=== PATIENT | female | born 1950 | race Caucasian/White ===

== ENCOUNTER 2021-10-23 12:17 | Outpatient (CLI) | payer MEDICARE, BC, SELFPAY ==
[2021-10-23 13:42] VITALS: BP 144/82; PULSE 77; RESP 18
[2021-10-23] MEDS: PERFLUTREN LIPID MICROSPHERES 2 ML VIAL IV (14:54)
--- NOTE | 2021-10-23 17:40 | PM.ST ---
Stress Test Note Date Date of test: 10/23/21 Providers Referring provider: Arleen Ramirez Primary care provider: Arleen Ramirez Stress test physician: Manuel Miller Stress Test Note Stress test ordered: Stress Echo Indication for test: chest pain Stress test medicine: Definity Results discussion: Patient is very nice lady presents above test after discussion risks benefits side effects she would like to proceed pretest cardiac stress test medical history form is reviewed. Pre EKG shows a ventricular rate of 70, there is some mild ST wave changes noted throughout the precordium, blood pressure is 142/80. Patient is exercised for a total time of 4 minutes 41 seconds, achieved a metabolic equivalent of 6.6. Maximum blood pressure is 200/94. 102% of the target was reached. During this test there is no acute ST wave changes suggestive ischemia, no dysrhythmias, and no other acute findings. She recovered normally in the recovery period, did not have chest pain just some mild 15 Impression: Negative electrographic portion of stress echo Follow up suggested: Await echo images these will be read by Cardiology patient left this testing facility in excellent condition negative get, back to baseline.
== END 2021-10-23 12:18 | disposition home or self-care (01) ==
LOC: STRESS 12:20
PROVIDERS: PCP Family Medicine; Visit Provider Family Medicine
DX: R07.9 Chest pain, unspecified (principal)
CPT/HCPCS: 93016; 93325; 93351; Q9957

== ENCOUNTER 2021-12-17 10:00 | Outpatient (RCR) | payer OTHER, MEDICARE, BC, SELFPAY | END 2021-12-28 13:32 | disposition home or self-care (01) | PROVIDERS: PCP Family Medicine; Visit Provider Nurse Practitioner Family | DX: M25.512 Pain in left shoulder (principal); Z51.89 Encounter for other specified aftercare | CPT/HCPCS: 97110; 97140; 97162 ==

== ENCOUNTER 2022-09-16 11:18 | Inpatient (IN) | payer MEDICARE, BC, SELFPAY ==
[2022-09-16] VITALS (9 sets, daily range): BP systolic 139–180; BP diastolic 72–93; PULSE 69–82; RESP 16–18; TEMP 35.8–36.6; O2SAT 91–96; BMI 32.6; BMI 34.4
--- NOTE | 2022-09-16 13:23 | CRLHL7_ITS ---
For Patients: As a result of the 21st Century Cures Act, medical imaging exams and procedure reports are released immediately into your electronic medical record. You may view this report before your referring provider. If you have questions, please contact your health care provider. INDICATION: Fall, left rib pain, left upper quadrant and flank pain. History of appendectomy. TECHNIQUE: CT of the chest, abdomen, and pelvis with 93 cc Isovue 370 IV contrast. Coronal and sagittal reconstructions. COMPARISON: None. FINDINGS: Chest: Heart size upper limits of normal. Normal caliber thoracic aorta. Coronary artery and aortic vascular calcifications. The main pulmonary artery is enlarged measuring 3.4 cm. This can be seen with pulmonary hypertension. No large central pulmonary embolism. No pericardial effusion or mediastinal hematoma. Mildly prominent right paratracheal, subcarinal, and bilateral axillary lymph nodes may be reactive. The imaged thyroid gland is normal in appearance. No focal consolidation, pleural effusion, or pneumothorax. Bibasilar atelectasis. Linear atelectasis or scarring left lower lobe. No pulmonary nodules identified. No central endobronchial lesion or bronchial wall thickening. Degenerative changes of the spine. Acute nondisplaced fractures of the right anterior 4th rib and left anterior 4th-6th ribs. Old fractures of the left posterior 5th-8th ribs. Abdomen/pelvis: The liver, gallbladder, spleen, pancreas, and adrenal glands are negative. No biliary dilation. Hepatic and portal veins are patent. Symmetric enhancement of the kidneys. Small right renal cyst. There is a 4.4 cm exophytic cyst arising from the lower pole of the left kidney. No hydronephrosis or ureteral dilation. No obstructing urinary calculi identified. The bladder is normal in appearance. There is a subtle enhancing lesion within the cervical canal measuring 1.4 cm (series 5, image 252). No adnexal mass. No small bowel dilation. Moderate amount of stool in the proximal colon. Status post appendectomy with residual appendiceal stump. No intraperitoneal free air or fluid. Mildly prominent bilateral external iliac and inguinal chain lymph nodes are likely reactive. Aortoiliac vascular calcifications. Small fat containing umbilical and right inguinal hernias. Left convex lumbar curve. Degenerative changes of the spine and pubic symphysis. Hemangioma in the L3 vertebral body. Minimal retrolisthesis of L1 on L2, L2 on L3, and L3 on L4. Mild anterolisthesis of L4 on L5. No acute fracture identified. IMPRESSION: 1. Acute nondisplaced fractures of the right anterior 4th rib and left anterior 4th-6th ribs. 2. Enlargement of the main pulmonary artery which can be seen with pulmonary hypertension. 3. Mildly prominent mediastinal, bilateral axillary, and bilateral pelvic lymph nodes are likely reactive. 4. There appears to be an enhancing lesion within the cervical canal. This could be further evaluated with nonemergent pelvic ultrasound. 5. No other acute findings in the chest, abdomen, or pelvis. Please note that all CT scans at this facility use dose modulation, iterative reconstruction, and/or weight-based dosing when appropriate to reduce radiation dose to as low as reasonably achievable. Dictated by Shani Diaz MD @ 09/16/2022 4:31:02 PM (Electronically Signed)
--- NOTE | 2022-09-16 13:23 | CRLHL7_ITS ---
For Patients: As a result of the Century Cures Act, medical imaging exams and procedure reports are released immediately into your electronic medical record. You may view this report before your referring provider. If you have questions, please contact your health care provider. INDICATION: Fall. Headaches. TECHNIQUE: CT of the head without contrast. Coronal and sagittal reformats are included. COMPARISON: None. FINDINGS: No acute intracranial hemorrhage. No mass effect or midline shift. No hydrocephalus or extra-axial collections. Patchy hypoattenuation throughout the supratentorial white matter, typical for chronic microvascular ischemic changes. No acute osseous abnormalities. Hyperostosis internalis. Mastoid air cells and paranasal sinuses are clear. Normal soft tissues. IMPRESSION: IMPRESSION: 1. No acute intracranial abnormalities. Please note that all CT scans at this facility use dose modulation, iterative reconstruction, and/or weight-based dosing when appropriate to reduce radiation dose to as low as reasonably achievable. Dictated by aGurav Rome MD @ 09/16/2022 3:42:11 PM (Electronically Signed)
--- NOTE | 2022-09-16 13:23 | CRLHL7_ITS ---
For Patients: As a result of the Cures Act, medical imaging exams and procedure reports are released immediately into your electronic medical record. You may view this report before your referring provider. If you have questions, please contact your health care provider. INDICATION: Fall. Neck pain. TECHNIQUE: CT of the cervical spine without contrast. Coronal and sagittal reformats are included. COMPARISON: None. FINDINGS: No acute fracture or traumatic malalignment of the cervical spine. Craniocervical junction alignment is maintained. C5-6 moderate disc height loss with endplate remodeling. C4-5 and C6-7 mild disc height loss. Minimal disc degeneration elsewhere. Multilevel uncovertebral/facet arthrosis with high-grade neural foraminal stenosis and C5-6 on the left, and [id number] elsewhere. Imaged intracranial structures, cervical and paraspinous soft tissues are normal in appearance. The visualized pulmonary apices are clear. IMPRESSION: 1. No acute fracture or traumatic malalignment of the cervical spine. Please note that all CT scans at this facility use dose modulation, iterative reconstruction, and/or weight-based dosing when appropriate to reduce radiation dose to as low as reasonably achievable. Dictated by Gaurav Rome MD @ 09/16/2022 3:49:02 PM (Electronically Signed)
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
[2022-09-16] MEDS: fentaNYL 100 MCG/2 ML inj 25 MCG IVP ×2 (13:42→15:10)
[2022-09-16] MEDS: ONDANSETRON 2 MG/ML inj 4 MG IVP (13:42)
[2022-09-16 13:49] LABS: Basophils Absolute Auto 0.02 K/uL (0.00-0.30); Basophils Percent Auto 0.3 % (0.0-3.0); Eosinophils Absolute Auto 0.19 K/uL (0.00-0.50); Eosinophils Percent Auto 2.6 % (0.0-7.0); Hematocrit 46.2 % (33.0-51.0); Hemoglobin* 14.9 gm/dL (12.0-16.0); Immature Granulocytes Abs Auto 0.01 K/uL (0.00-0.30); Immature Granulocytes Pct Auto 0.1 %; Lymphocytes Percent Auto 13.3 % (20-44); Mean Corpuscular HGB Conc 32 gm/dL (32-36); Mean Corpuscular Hemoglobin 29 pg (26-34); Mean Corpuscular Volume 91 fL (80-100); Monocytes Percent Auto 9.8 % (0.0-11.0); Neutrophils Percent Auto 73.9 % (42.0-72.0); Platelet Count* 142 K/uL (140-440); RDW Coefficient of Variation % 14.2 % (11.5-15.5); Red Blood Count 5.08 m/uL (4.00-5.20); White Blood Count* 7.23 K/uL (4.50-11.00)
[2022-09-16 13:50] LABS: Slide Review Reflex No
--- OUTSIDE RECORDS SUMMARY | 2022-09-16 13:52 | XMS_ITS | Continuity of Care Document ---
Author Name Unknown Address [address] [place] [address] [facility] Address [address] [place] [address] Phone Care Team Providers Care Home Service Demonstrator Name Role Phone MD Deborah Whelan Emergency Provider Pcp-Steve, MD [place] Primary Care Provider Unavailabl e Chief Complaint and Reason for Visit Chief Complaint CHEST PAIN Allergies, Adverse Reactions, Alerts No known allergies Social History Smoking Status Unknown if ever smoked Observation Status Observation Response Date of Response Lives With Family March 16 11:06am Living Situation Private Home March 16 11:06am Additional Data Assigned Sex Female Problems Active Problems Medical Problem Onset Date Status Chronic chest wall pain Active Upper back pain on left side Act omer Dizziness Active Posterior neck pain Active Frequent headaches Active Thrombocytopenia Active Left shoulder pain Active Hypertension Active Medications Medication Status Dose Units Route Directions Qty Days Start Diego e End Date Instructions Acetaminophe n-Codeine Active 1 TAB PO EVERY 6 HOURS 15 3 March 16, 2022 12:00am Procedures Procedure Date Performed Status EKG ED Electrocardiogram March 16, 2022 11:[address] head/brain wo contrast March 16, 2022 11: 23am completed XR chest 2V March 16, 2022 11:23am compl eted XR shoulder LT min 2V March 16, 2022 11:23am completed XR cervical spine 3V March 16, 2022 11:23am completed Relevant Diagnostic Tests and/or Laboratory Data Laboratory Results Test Date/Time Result Interpretation Reference Range Result Comment Performing Site White Blood Count March 16, 2022 11:45am 6.8 x10^3/uL 4.0-11.0 [facility] [id number] [address] [place] [address] Red Blood Count March 16, 2022 11:45am 4.7 x10^6/uL 3.7-5.4 [facility] [id number] [address] [place] [address] Hemoglobin March 16, 2022 11:45am 14.7 g/dl 12.0-16.0 [facility] [id number] [address] [place] [address] Hematocrit March 16, 2022 11:45am 43.5 % 35.0-48.0 [facility] [id number] [address] [place] [address] Mean Corpuscular Volume March 16, 2022 11:45am 92 fL 78-100 [facility] [id number] [address] [place] [address] Mean Corpuscular Hemoglobin March 16, 2022 11:45am 31 pg 27-34 [facility] [id number] [address] [place] [address] Mean Corpuscular Hemoglobin Concent March 16, 2022 11:45am 33.8 g/dl 32.0-36.0 [facility] [id number] [address] [place] [address] Red Cell Distribution Width March 16, 2022 11:45am 14.7 % 11.9-15.7 [facility] [id number] [address] [place] [address] Platelet Count March 16, 2022 11:45am 134 x10^3/uL 150-450 [facility] [id number] [address] [place] [address] Neutrophils (%) (Auto) March 16, 2022 11:45am 81 % [facility] [id number] [address] [place] [address] Lymphocytes (%) (Auto) March 16, 2022 11:45am 11.2 % [facility] [id number] [address] [place] [address] Monocytes (%) (Auto) March 16, 2022 11:45am 6 % [facility] [id number] [address] [place] [address] Eosinophils (%) (Auto) March 16, 2022 11:45am 1.6 % [facility] [id number] [address] [place] [address] Basophils (%) (Auto) March 16, 2022 11:45am 0 % [facility] [id number] [address] [place] [address] Neutrophils # (Auto) March 16, 2022 11:45am 5.5 x10^3/uL 1.5-7.8 [facility] [id number] [address] [place] [address] Lymphocytes # (Auto) March 16, 2022 11:45am 0.8 x10^3/uL 0.9-3.9 [facility] [id number] [address] [place] [address] Monocytes # (Auto) March 16, 2022 11:45am 0.4 x10^3/uL 0.2-1.0 [facility] [id number] [address] [place] [address] Eosinophils # (Auto) March 16, 2022 11:45am 0.1 x10^3/uL 0.1-0.6 [facility] [id number] [address] [place] [address] Basophils # (Auto) March 16, 2022 11:45am 0.0 x10^3/uL 0.0-0.2 [facility] [id number] [address] [place] [address] Nucleated RBC Absolute Count (auto) March 16, 2022 11:45am 0 [facility] [id number] [address] [place] [address] Prothrombin Time March 16, 2022 11:45am 10.7 seconds 9.3-12.1 [facility] [id number] [address] [place] [address] Prothromb Time International Ratio March 16, 2022 11:45am 1.0 0.9-1.2 Reference Interval is for non-anticoagul ated patients.Suglorna sted INR Therapeutic Range for Vitamin K antogonist therapy:LEVELS OF THERAPY INDICATIONS TARGET INR RANGEStandard Dose Venous Thrombosis, 2.0 - 3.0 Atrial Fibrillation, Pulmonary Embolism. High Dose Valvular Heart Disease, 2.5 - 3.5 Mechanical Heart, Intracardiac Thrombosis. [facility] [id number] [address] [facility] [address] D-Dimer, Quantitative March 16, 2022 11:45am 0.67 ug/mLFEU <0.49 The D-Dimer is intended for use in conjunction with clinical pretest probability (PTP) assessment model to exclude pulmonary embolism (PE) and deep venous thrombosis (DVT) in outpatients presenting to the emergency or ambulatory department with suspected PE or DVT.The cut off value is 0.50 ug/mL FEUResults of this test should always be interpreted in conjunction with the patient? s medical history, clinical presentation and other findings. DVT clinical diagnosis should not be based on the result of the D-Dimer alone. [facility] [id number] [address] [facility] [address] Sodium Level March 16, 2022 12:45pm 135 mmol/L 136-145 [facility] [id number] [address] [place] [address] Potassium Level March 16, 2022 12:45pm 4.1 mmol/L 3.5-5.1 [facility] [id number] [address] [place] [address] Chloride Level March 16, 2022 12:45pm 103 mmol/L 98-107 [facility] [id number] [address] [facility] [address] Carbon Dioxide Level March 16, 2022 12:45pm 29.0 mmol/L 21.0-32.0 [facility] [id number] [address] [place] [address] Anion Gap March 16, 2022 12:45pm 3 mmol/L 6-11 [facility] [id number] [address] [facility] [address] Blood Urea Nitrogen March 16, 2022 12:45pm 18 mg/dL 7-18 [facility] [id number] [address] [facility] [address] Creatinine March 16, 2022 12:45pm 0.88 mg/dL 0.60-1.30 [facility] [id number] [address] [facility] [address] Estimated Creatinine Clearance March 16, 2022 12:45pm 60 mL/min This value is calculated by Cockcroft Gault Equation using ideal body weight. This result is dependent on an accurate patient height and weight which is obtained from patients medical record. Cockcroft, D.W. and M.H. Gault. Prediction of creatinine clearance from serum creatinine. Nephron. 1976. 16(1):31-41. [facility] [id number] [address] [place] [address] Estimat Glomerular Filtration Rate March 16, 2022 12:45pm 69 >90 Reported eGFR is based on the CKD-EPI 2020 equation that does not use a race coefficient. Additional information can be found at:03-22-8261_ [email or web address] ([email or web address]) [facility] [id number] [address] [place] [address] BUN/Creatinine Ratio March 16, 2022 12:45pm 20 ratio 6-21 [facility] [id number] [address] [place] [address] Glucose Level March 16, 2022 12:45pm 88 mg/dL 74-106 [facility] [id number] [address] [place] [address] Calcium Level March 16, 2022 12:45pm 9.90 mg/dL 8.50-10.10 [facility] [id number] [address] [place] [address] Total Bilirubin March 16, 2022 12:45pm 0.53 mg/dL 0.00-1.00 [facility] [id number] [address] [place] [address] Aspartate Amino Transf (AST/SGOT) March 16, 2022 12:45pm 23 U/L 15-37 [facility] [id number] [address] [place] [address] Alanine Aminotransferase (ALT/SGPT) March 16, 2022 12:45pm 44 U/L 12-78 [facility] [id number] [address] [place] [address] Troponin I High Sensitivity March 16, 2022 12:45pm 4.6 ng/L 0.0-58.9 High Sensitivity Troponin I less than 59.0 ng/L appears normal but may be associated with minimal myocardial damage (ACS) if accompanied by appropriate clinical and ECG findings. Troponin I equal to or greater than 59.0 ng/L is consistent with myocardial infarction if associated with at least one ischemic finding (new significant AA-plzegbn-A wave changes, new left bundle branch block, pathologic Q wave changes, imaging evidence of new loss of viable myocardium or new regional wall abnormality). [2012 Isabella Definition of Myocardial Infarction] [facility] [id number] [address] [place] [address] Total Protein March 16, 2022 12:45pm 7.40 g/dL 6.40-8.20 [facility] [id number] [address] [place] [address] Albumin March 16, 2022 12:45pm 3.6 g/dL 3.4-5.0 [facility] [id number] [address] [place] [address] Globulin March 16, 2022 12:45pm 3.8 g/dl 2.0-3.5 [facility] [id number] [address] [place] [address] Albumin/Globulin Ratio March 16, 2022 12:45pm 0.9 ratio 0.8-2.0 [facility] [id number] [address] [place] [address] Alkaline Phosphatase March 16, 2022 12:45pm 75 U/L 50-136 [facility] [id number] [address] [place] [address] Diagnostic Imaging Reports Report Dictated Date/Time Dictated By Status Radiology Report March 16, 2022 12:01pm Pan Willis MD completed [address] [address] Patient Name: Genny Bowser Medical Record#: [id number] Address: City/State/Zip: Attending Dr: Deborah Whelan MD Phone: Insurance: Self Pay /Age/Sex: 1950/71/F Admit/Reg Date: 03/16/[address]: Sony pond, PAC Location: [facility]/ PCP: Date of Service: 03/16/22 Order (s): CT head/brain wo contrast CPT Code: 85884 Report Number: [id number] Reason for Exam: Dizziness Clinical History/Indication for Exam: Dizziness CT brain without contrast 03/16/2022 Clinical information: Dizziness Technique: Routine noncontrast CT brain. Comparison: None. Findings: There is no evidence of acute intracranial hemorrhage. There is mild low attenuation in the periventricular and subcortical white matter, nonspecific but likely indicating sequelae of remote small vessel ischemia. There is no clear evidence of an acute intracranial infarct in this setting. MR if needed. There is no midline shift, intracranial mass, or mass-effect. There is no extra-axial fluid collection or hydrocephalus. Visualized paranasal sinuses and mastoids are clear. There are arterial atherosclerotic changes. Impression: 1. No acute hemorrhage. 2. Mild Sequelae of old small vessel ischemia, no clear evidence of acute intracranial infarction in this setting. MR if needed. Automatic exposure control was used as a dose lowering technique. Radiation Dose: CTDI is 49.19 mGy. DLP is 1029.4 mGy-cm. REPORT SIGNATURE ON FILE 03/16/2022 (12:03 [place] Time ) Signed by: Pan Willis M.D. Reading Location: [facility] [place][note 2] Dictated By: Pan Willis MD 03/16/22 1201 Signed By: Pan Willis MD 03/16/22 1203 TD/TT: 03/16/22 1202Tech: [id number] cc: NICKOLAS* Sony Mcdonnell, PAC Report Dictated Date/Time Dictated By Status Radiology Report March 16, 2022 12:30pm López Bland MD completed [place] [id number] Patient Name: Genny Bowser Medical Record#: [id number] Address: [address] [place] [address] City/State/Zip: [place] [address]: Deborah khan MD Insurance: Self Pay /Age/Sex: 1950/71/F Admit/Reg Date: 03/16/[address]: Sony pond, PAC Location: [facility]/ PCP: Pcp-Md OUMOU Wilson Date of Service: 03/16/22 Order (s): XR chest 2V CPT Code: 97351 Report Number: [id number] Reason for Exam: Left lower rib cage pain x 11 years Clinical History/Indication for Exam: Left lower rib cage pain x 11 years RADIOGRAPHS OF THE CHEST 2 VIEWS INDICATION: Left lower rib cage pain x 11 years COMPARISON: No relevant prior studies available. FINDINGS: Lungs: Unremarkable. No consolidation. Pleural space: Unremarkable. No pneumothorax. Heart: Cardiomegaly. Mediastinum: Unremarkable. Bones/joints: Multiple remote healed left rib fractures. IMPRESSION: No acute findings in the chest. REPORT SIGNATURE ON FILE 03/16/2022 (12:32 [place] Time ) Signed by: López Rod M.D. Reading Location: 223 Dictated By: López Rod MD 03/16/22 1230 Signed By: López Rod MD 03/16/22 1232 TD/TT: 03/16/22 1231Tech: [facility] cc: FIGAL; PCPNO* Sony Mcdonnell, PAC; PcpMd OUMOU Hutchinson Report Dictated Date/Time Dictated By Status Radiology Report March 16, 2022 12:31pm López Bland [place] [address] Patient Name: Genny Bowser Medical Record#: [id number] Address: [address] [place] [address] City/State/Zip: [place] [address]: Deborah khan MD Insurance: Self Pay /Age/Sex: 1950/71/F Admit/Reg Date: 03/16/[address]: Sony pond PAC Location: [facility]/ PCP: Pcp-Md OUMOU Wilson Date of Service: 03/16/22 Order (s): XR shoulder LT min 2V CPT Code: 09640 Report Number: [id number] Reason for Exam: Intermittent pain since Oct 2021 Clinical History/Indication for Exam: Intermittent pain since Oct 2021 RADIOGRAPHS OF THE LEFT SHOULDER COMPLETE 2 OR MORE VIEWS INDICATION: Intermittent pain since Oct 2021 COMPARISON: No relevant prior studies available. FINDINGS: Bones/joints: Mild AC joint arthrosis. No acute fracture. No dislocation. Soft tissues: Unremarkable. IMPRESSION: No acute findings in the left shoulder. REPORT SIGNATURE ON FILE 03/16/2022 (12:33 [place] Time ) Signed by: López Rod M.D. Reading Location: 223 Dictated By: López Rod MD 03/16/22 1231 Signed By: López Rod MD 03/16/22 1233 TD/TT: 03/16/22 1232Tech: [facility] cc: FIGAL; PCPRAUL* Sony Mcdonnell PAC; Pcp-Md OUMOU Wilson Report Dictated Date/Time Dictated By Status Radiology Report March 16, 2022 12:31pm López Bland [place] [address] Patient Name: Genny Bowser Medical Record#: [id number] Address: [address] [place] [address] City/State/Zip: [place] [address]: Deborah khan MD Insurance: Self Pay /Age/Sex: 1950/71/F Admit/Reg Date: 03/16/[address]: Sony pond PAC Location: [facility]/ PCP: PcpMd OUMOU Hutchinson Date of Service: 03/16/22 Order (s): XR cervical spine 3V CPT Code: 16821 Report Number: [id number] Reason for Exam: Intermittent L posterior neck pain since Oct 2021 Clinical History/Indication for Exam: Intermittent L posterior neck pain since Oct 2021 RADIOGRAPHS OF THE CERVICAL SPINE 2 OR 3 VIEWS INDICATION: Intermittent L posterior neck pain since Oct 2021 COMPARISON: No relevant prior studies available. FINDINGS: Vertebrae: Unremarkable. No definite fracture. Normal alignment. Disc spaces: Narrowing C5-6 and C6-7 interspaces. Soft tissues: Unremarkable. IMPRESSION: No acute findings in the cervical spine. REPORT SIGNATURE ON FILE 03/16/2022 (12:33 [place] Time ) Signed by: López Rod M.D. Reading Location: 223 Dictated By: López Rod MD 03/16/22 1231 Signed By: López Rod MD 03/16/22 1234 TD/TT: 03/16/22 1232Tech: [facility] cc: FIGAL; PCPNO* Sony Mcdonnell PAC; Pcp-Md OUMOU Wilson Vital Signs Vital Reading Result Reference Range Collection Date/Time Height 162.56 cm March 16 11:17am Weight 83.91 kg March 16 11:17am Body Temperature 36.7 Samia 36.4-37.6 March 11:17am Heart Rate 89 /min 60-90 March 16 3:24pm Respiratory rate 18 /min 12-24 March 3:24pm Oxygen saturation by Pulse oximetry 98 % 95-100 March 16, 2022 3 :24pm BP Systolic 119 mm[Hg] 90-140 March 16 3:24pm BP Diastolic 80 mm[Hg] 60-90 March 16 3:24pm BMI (Body Mass Index) 31.8 kg/m2 2022 11:17am Advance Directives Advance Directive Response Recorded Date/ Time Advance Directives No March 16, 2022 12:05pm Health Care Proxy No March 16, 2022 12:05pm Encounters Encounter Location(s) Arrival/Admit Date Discharge/Depart Date Provider(s) Departed Emergency [facility]-Emergency Dept - [facility] March 16, 2022 11:02am March 16, 2022 3:00pm null Plan of Treatment Future Tests Future scheduled test information is unavailable Pending Tests Pending diagnostic test information is unavailable Future Visits Future appointment information is unavailable Referrals to Other Providers Reason for Referral Referral Start Date Provider Provider Contact Information Provider Address Sara Allred MD Work Phone: MD Dinesh Abarca MD Future Procedures Procedure Name Ordered Date Scheduled Date EKG ED Electrocardiogram March 16, 2022 11:0 8am March 16, 2022 11:08am Future Medications Future medication information is unavailable Patient Instructions Thrombocytopenia ED Chest Pain, Noncardiac ED Back Pain (Acute or Chronic) ED Chronic Pain ED Chest Pain, Uncertain Cause ED Dizziness, Uncertain Cause ED Cephalgia Unspecified ED Hypertension, Established ED Neck Pain ED Sprain Thoracic Spine ED Shoulder Pain, Uncertain Cause Goals Acute Goals Follow-up with your primary care provider in 2-3 days for recheck, blood pressure monitoring, pain management, recommended yearly screening exams, and referrals if needed. Schedule an appointment with a website optimization strategist and neurologist as soon as possible for further evaluation. Symptoms continue or get worse, new symptoms, any concerns return to the emergency department.
[2022-09-16 14:09] LABS: Chloride* 105 mmol/L (96-114); Potassium* 4.1 mmol/L (3.6-5.1); Sodium* 137 mmol/L (135-149)
[2022-09-16 14:12] LABS: Blood Urea Nitrogen* 13 mg/dL (7-30); Carbon Dioxide* 22 mmol/L (20-32); Creatinine* 0.7 mg/dL (0.5-1.5); Est. Creatinine Clearance* 42.62; Estimated Glomerular Filt Rate 91 ml/min; Glucose* 94 mg/dL (60-115)
[2022-09-16 14:13] LABS: Calcium* 9.8 mg/dL (8.4-10.6)
[2022-09-16 15:40] LABS: PCR FLU A Negative PCR FLU A (Negative); PCR FLU B Negative PCR FLU B (Negative)
[2022-09-16 15:45] LABS: Appearance Urine Clear (Clear); Bilirubin Urine Negative (Negative); Blood Urine Negative (Negative); Color Urine Yellow (Yellow); Glucose Urine Negative (Negative); Ketones Urine Negative (Negative); Leukocyte Esterase Urine Negative (Negative); Nitrite Urine Negative (Negative); Protein Urine Negative (Negative); Urobilinogen Urine 0.2 (0.2-1.0); pH Urine 7.5 (5.0-8.5)
[2022-09-16 15:52] LABS: SARS PCR* Negative SARS-CoV-2 (Negative)
[2022-09-16 16:10] LABS: RBC Urine 0-2 (0-2); WBC Urine 0-2 (0-5)
[2022-09-16] MEDS: HYDROCODONE-ACETAMIN 5-325 MG 1 TAB PO (16:34)
--- NOTE | 2022-09-16 16:59 | ED.NURSE ---
Pt's brother called for update, pt verbal okay to update brother on admission and status.
--- NOTE | 2022-09-16 17:09 | ED.NURSE ---
Report called to M/S RN.
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
--- NOTE | 2022-09-16 18:33 | PC.NURSE ---
Pt alert and oriented. Pt pleasant and cooperative. Pt arrived from ED [id number]. Pt states pain is an 8 during movement and 4 when at rest. Pt assist of one with gait belt.
--- NOTE | 2022-09-16 18:36 | PC.NURSE ---
Pt states she uses a CPAP at home; Friend to bring tonight.
[2022-09-16] MEDS: OXYCODONE 5 MG TABLET PO (20:32)
[2022-09-16] MEDS: SODIUM CHLORIDE 0.9 % (FLUSH) 10 ML SYRINGE 5 ML IVF (20:34)
[2022-09-16] MEDS: CITALOPRAM HYDROBROMIDE 20 MG TABLET PO (21:18)
[2022-09-16] MEDS: METOPROLOL TARTRATE 25 MG TABLET PO (21:18)
[2022-09-16] MEDS: ATORVASTATIN 10 MG TABLET 20 MG PO (21:18)
--- NOTE | 2022-09-16 21:19 | PC.NURSE ---
Patient has home bottle of Meloxicam 15mg tablets. Verified with remote pharmacy via telephone that medication in bottle is Meloxicam (small, yellow, round tablet with ZC 26 imprinted on one side). Ok to use per pharmacy. Order obtained from MD to use home medication.
[2022-09-16] MEDS: ACETAMINOPHEN 500 MG TABLET 1000 MG PO (23:28)
[2022-09-17] VITALS (7 sets, daily range): BP systolic 123–131; BP diastolic 61–74; PULSE 60–68; RESP 16–20; TEMP 36.3–36.6; O2SAT 91–96
[2022-09-17] MEDS: ACETAMINOPHEN 500 MG TABLET 1000 MG PO ×3 (06:14→18:05)
--- NOTE | 2022-09-17 06:21 | PC.NURSE ---
Pt is oriented to self x3. Afebrile. Pt reports 4/10 neck and left sided rib pain, pain managed with scheduled medications and ice pack applied to left side.? Pt denies chest pain, SOB, N/V. Pt is tolerating a regular diet and voiding. Pt is up SBA with walker and gait belt. Pt slept throughout most of night with cpap on.??
[2022-09-17 07:45] LABS: Free T4 Free Thyroxine* 0.64 ng/dL (0.70-1.85)
[2022-09-17] MEDS: MULTIVITAMIN/MINERALS 1 TABLET 1 TAB PO (08:44)
[2022-09-17] MEDS: SODIUM CHLORIDE 0.9 % (FLUSH) 10 ML SYRINGE 5 ML IVF ×3 (08:45→21:06)
[2022-09-17] MEDS: OXYCODONE 5 MG TABLET PO ×2 (09:21→21:12)
--- NOTE | 2022-09-17 10:16 | W.PM.NB ---
Nerve Block Nerve Block Time Seen by Provider: 10:00 Date Seen: 09/17/22 Type of block requested by surgeon for post-operative analgesia: other periph nerve block (Erector Spinae) Side: left Time out performed: Yes Verification of patient name: Yes Verification of date of : Yes Site marking: site marked Name of person performing procedure: Radha Proctor Assistants, if any: Karson Alex Continuous monitoring Was continuous monitoring of O2 sat, B/P, court monitor, recorded every 15 minutes?: Yes Procedure Checklist: sterile prep, needles and gloves Ultrasound guided. Images saved: Yes Medications given in 5ml increments after negative aspiration: Marcaine %: 0.25 mL: 25 and Exparel mL: 5 Patient tolerated procedure well: Yes Block Charges Block Charge (with Pro Fee): Other Periph Nerve Block (Erector Spinae) Use of Ultrasound Machine for Block: Yes- US Guidance/pain block
--- NOTE | 2022-09-17 10:59 | XR_ITS ---
Patient: SONI BOWSER Facility:?[facility] Patient ID:?[id number] Site Patient ID:?[id number]. Site :?[id number] Study:?XRay-Chest 1 VIEW PORTABLE-09/17/2022 11:19:19 AM Ordering Physician:Keshav Covarrubias Final Report: INDICATION: Hypoxia. TECHNIQUE: Chest 1 views. COMPARISON: None. FINDINGS: Heart and mediastinum: Normal for AP technique and low lung volumes. Lungs and pleural spaces: Lungs are clear. No sign of infiltrate or mass. No sign of pleural effusion. No pneumothorax. Bones and soft tissues: Chronic healed fracture deformities of the left posterolateral 5th, 6th and 7th ribs. IMPRESSION: There are no radiographic findings to explain history of hypoxia. Clinical re- evaluation is suggested. Dictated by Kishor Menon MD @ 09/17/2022 11:41:12 AM Signed by:?Kishor Menon MD @09/17/2022 11:41:12 AM (Electronic Signature)
[2022-09-17] MEDS: KETOROLAC 30 MG/ML inj IVP (11:16)
--- NOTE | 2022-09-17 15:06 | PM.IMPN1 ---
Progress Note: A&P Assessment and plan (1) Fracture, ribs: Problem details: - Acute nondisplaced fractures of the right anterior 4th rib and left anterior 4th-6th ribs. - received a nerve block by anesthesia today -having difficulty ambulating and may need prison short-term rehab. - start oxycodone and monitor on continuous pulse ox. Continue her usual nightly meloxicam and start acetaminophen. Status: Acute (2) Acute respiratory failure: Problem details: Likely from painful inspiration that then limits her ventilatory capacity. oxygen to support. should be self limitred. Status: Acute (3) Lymphadenopathy: Problem details: CT chest/abd/pelvis 09/16/22: Mildly prominent mediastinal, bilateral axillary, and bilateral pelvic lymph nodes are likely reactive. - will need further outpatient workup Status: Acute (4) Abnormal cervix finding: Problem details: CT chest/abd/pelvis 09/16/22: There appears to be an enhancing lesion within the cervical canal. This could be further evaluated with nonemergent pelvic ultrasound. Status: Acute (5) Pulmonary hypertension: Problem details: CT chest 09/16/22: Enlargement of the main pulmonary artery which can be seen with pulmonary hypertension. - will need further outpatient workup. Status: Suspected Subjective Date Seen: 09/17/22 Exam Const: Vital Signs, click to edit/add: Vital Signs - 24 hr 09/16/22 15:15 09/16/22 17:09 09/16/22 17:23 Temperature 97.7 F Pulse Rate [Pulse Oximeter] 72 Pulse Rate [Right Pulse Oximeter] 69 73 Respiratory Rate 16 16 Blood Pressure [Le ft Arm] 169/79 H Blood Pressure [Le ft Upper Arm] 164/79 H 148/77 H Pulse Oximetry 96 95 96 Oxygen Delivery Me thod Room Air Room Air Room Air 09/16/22 17:23 09/16/22 19:24 09/16/22 19:27 Temperature 98 F Pulse Rate [Pulse Oximeter] 82 Pulse Rate [Right Pulse Oximeter] Respiratory Rate 16 16 Blood Pressure [Le ft Arm] 155/72 H Blood Pressure [Le ft Upper Arm] Pulse Oximetry 96 92 92 Oxygen Delivery Me thod Room Air Room Air 09/16/22 19:27 09/16/22 23:30 09/16/22 23:30 Temperature 98 F 96.4 F L Pulse Rate [Pulse Oximeter] 82 70 70 Pulse Rate [Right Pulse Oximeter] Respiratory Rate 16 16 16 Blood Pressure [Le ft Arm] 155/72 H 153/93 H Blood Pressure [Le ft Upper Arm] Pulse Oximetry 92 91 Oxygen Delivery Me thod Room Air Room Air 09/17/22 02:55 09/17/22 07:00 09/17/22 07:00 Temperature 97.9 F 97.3 F L Pulse Rate [Pulse Oximeter] 60 68 68 Pulse Rate [Right Pulse Oximeter] Respiratory Rate 18 20 16 Blood Pressure [Le ft Arm] 129/72 123/61 Blood Pressure [Le ft Upper Arm] Pulse Oximetry 91 93 Oxygen Delivery Me thod Room Air 09/17/22 10:50 Temperature 97.7 F Pulse Rate [Pulse Oximeter] 63 Pulse Rate [Right Pulse Oximeter] Respiratory Rate 16 Blood Pressure [Le ft Arm] 123/68 Blood Pressure [Le ft Upper Arm] Pulse Oximetry 93 Oxygen Delivery Me thod Room Air Labs Labs: Laboratory Results - last 24 hr 09/16/22 09/16/22 09/17/22 14:55 15:23 05:44 TSH 9.090 H Free T4 0.64 L Urine Color Yellow Urine Appearance Clear Urine pH 7.5 Ur Specific [place] 1.020 Urine Protein Negative Urine Glucose (UA) Negative Urine Ketones Negative Urine Blood Negative Urine Nitrite Negative Urine Bilirubin Negative Urine Urobilinogen 0.2 Ur Leukocyte Esterase Negative Urine RBC 0-2 Urine WBC 0-2 Ur Squamous Epith Cells None Urine Bacteria None SARS-CoV-2 (PCR) Negative SARS-CoV-2 Influenza Type A (PCR) Negative PCR FLU A Influenza Type B (PCR) Negative PCR FLU B
--- NOTE | 2022-09-17 17:04 | PC.NURSE ---
Patient reported pain rated 10/10 in her left ribs this morning. Pt hesitant to take oxycodone due to how it made her feel. Pt educated on need for pain control and agreed to taking lower PRN dose. Lower dose did not cause any unwanted side effects per Pt. Anesthesia performed block at bedside per orders. Pt receiving scheduled Tylenol and Toradol. Ice packs helpful. After block sats decreased to 86-87% on RA. Encouraged IS and deep breathing with no change. 1 liter O2 applied per MD order. Maintaining sats greater than 90%. Since 1600 Pt able to maintain greater than 90% on RA. All other vitals have been WNL. Now rating pain at 2-3 at rest and 6-7 with activity. Pt ambulated in hallway this afternoon and reports less pain than when ambulating this morning with PT. Eating regular diet. Ambulates with standby assist, gait belt and walker. Family here off and on during shift. Brother called earlier, was updated on condition.
[2022-09-17] MEDS: METOPROLOL TARTRATE 25 MG TABLET PO (21:05)
[2022-09-17] MEDS: CITALOPRAM HYDROBROMIDE 20 MG TABLET PO (21:05)
[2022-09-17] MEDS: ATORVASTATIN 10 MG TABLET 20 MG PO (21:05)
--- NOTE | 2022-09-17 23:26 | PC.NURSE ---
[id number]: A&O, pleasant and cooperative. VSS w/ sats >90% on RA. Rating pain 2-7/10. Declined PRN pain medication. SBA w/ walker.
[2022-09-18] VITALS (7 sets, daily range): BP systolic 113–162; BP diastolic 64–86; PULSE 60–88; RESP 16–20; TEMP 36–36.7; O2SAT 90–96
[2022-09-18] MEDS: ACETAMINOPHEN 500 MG TABLET 1000 MG PO ×4 (00:01→18:17)
[2022-09-18 06:12] LABS: HCO3 VBG 28 mmol/L (21-28); PCO2 VBG 53 mmHG (40-50); PO2 VBG 40.2 mmHG (25-47); pH VBG 7.335 (7.32-7.43)
[2022-09-18] MEDS: OXYCODONE 5 MG TABLET PO ×4 (06:15→20:58)
[2022-09-18] MEDS: LEVOTHYROXINE 50 MCG TABLET PO (06:15)
[2022-09-18 06:27] LABS: Chloride* 104 mmol/L (96-114); Hematocrit 46.7 % (33.0-51.0); Hemoglobin* 14.8 gm/dL (12.0-16.0); Mean Corpuscular HGB Conc 32 gm/dL (32-36); Mean Corpuscular Hemoglobin 29 pg (26-34); Mean Corpuscular Volume 92 fL (80-100); Platelet Count* 93 K/uL (140-440); Red Blood Count 5.06 m/uL (4.00-5.20); White Blood Count* 4.76 K/uL (4.50-11.00)
[2022-09-18 06:28] LABS: Potassium* 4.9 mmol/L (3.6-5.1); Slide Review Reflex Yes; Sodium* 134 mmol/L (135-149)
[2022-09-18 06:30] LABS: Creatinine* 0.9 mg/dL (0.5-1.5); Est. Creatinine Clearance* 42.62; Estimated Glomerular Filt Rate 67 ml/min
[2022-09-18 06:31] LABS: Blood Urea Nitrogen* 22 mg/dL (7-30); Calcium* 9.6 mg/dL (8.4-10.6); Carbon Dioxide* 25 mmol/L (20-32); Glucose* 88 mg/dL (60-115)
--- NOTE | 2022-09-18 06:58 | PC.NURSE ---
Pt is oriented to self x3. Afebrile. Pt reports 8/10 left sided rib pain, pain managed with scheduled medications. Pt reports pain is only severe with coughing, deep breathing, and movement but is 2/10 during inactivity/sleep.?Pt denies chest pain, SOB, N/V. Pt is tolerating a regular diet and voiding. Pt is up SBA with walker and gait belt. Pt slept through half of night with 0.5 nasal cannula but O2 stats were 94-96% pt was then switch back to her?cpap around 0230 which she wore for the rest of the night, O2 stats ranged between 90-94%.??
--- NOTE | 2022-09-18 08:00 | CRLHL7_ITS ---
For Patients: As a result of the Cures Act, medical imaging exams and procedure reports are released immediately into your electronic medical record. You may view this report before your referring provider. If you have questions, please contact your health care provider. INDICATION: f/u hypoxia/broken ribs TECHNIQUE: Chest 2 views COMPARISON: Chest x-ray 09/17/2022, CT 09/16/2022 FINDINGS: No pleural effusion is present. Bibasilar reticular densities are similar representing scarring. Discogenic spurring thoracic spine. Old fracture deformities of the left 5th, 6th and 7th ribs. No pneumothorax. Acute nondisplaced left-sided rib fractures are not well delineated x-ray. IMPRESSION: Bibasilar fibrosis. No developing effusion or pneumothorax. Dictated by Marco Antonio Goodwin MD @ 09/18/2022 9:39:47 AM (Electronically Signed)
[2022-09-18] MEDS: MULTIVITAMIN/MINERALS 1 TABLET 1 TAB PO (08:39)
[2022-09-18] MEDS: SODIUM CHLORIDE 0.9 % (FLUSH) 10 ML SYRINGE 5 ML IVF (08:40)
--- NOTE | 2022-09-18 09:57 | PC.SOCIAL ---
Discharge Planning: Met with patient, Genny. Genny lives alone at her condo with her two small dogs. She has a close friend who lives forty five minutes away. This friend has offered to stay with her for a week after she is discharged. Genny says she is very independent and reluctant to ask for help. Encouraged to accept friend staying with her. Genny states she will consider this. She also states that she has two great nephews and a great niece that can also help if needed. No other questions or concerns. Social work to follow up as needed.
--- NOTE | 2022-09-18 11:57 | PM.IMPN1 ---
Progress Note: A&P Assessment and plan (1) Fracture, ribs: Problem details: - Acute nondisplaced fractures of the right anterior 4th rib and left anterior 4th-6th ribs. - received a nerve block by anesthesia on 09/17 - working with therapies to complete ADLs - pain management: scheduled APAP, home dose of Meloxicam, prn Oxycodone - still has inadequate pain control at this time, continue working with therapies to help dispo planning Status: Acute (2) Acute respiratory failure: Problem details: - likely from painful inspiration that then limits her ventilatory capacity, supplemental oxygen prn - has been able to wean off of this during the day Status: Acute (3) Lymphadenopathy: Problem details: - CT chest/abd/pelvis 09/16/22: Mildly prominent mediastinal, bilateral axillary, and bilateral pelvic lymph nodes are likely reactive - patient aware of findings; will need further outpatient workup/followup (PCP is Dr. Arleen Ramirez at [facility]; ) Status: Acute (4) Abnormal cervix finding: Problem details: - CT chest/abd/pelvis 09/16/22: There appears to be an enhancing lesion within the cervical canal. This could be further evaluated with nonemergent pelvic ultrasound - patient aware, will f/u with PCP Status: Acute (5) Pulmonary hypertension: Problem details: - CT chest 09/16/22: Enlargement of the main pulmonary artery which can be seen with pulmonary hypertension - consider outpatient TTE to evaluate further Status: Suspected Plan - per above - likely medically appropriate for d/c tomorrow with PCP followup Subjective Date Seen: 09/18/22 Interval history: Genny continues to have suboptimal pain control, which is limiting her ability to participate in therapies. She is working on mobility today, has weaned off supplemental oxygen. Exam Narrative: Exam Narrative: GEN: Alert HEENT: EOMIs bilaterally, no scleral icterus CV: RRR, No concerning murmurs R: Decreased bilateral bases, no wheezing, + discomfort with deep breathing Ext: wwp, no concerning edema Skin: No concerning skin lesions or rashes on exposed skin Neuro: No focal deficits Psych: Appropriate Const: Vital Signs, click to edit/add: Vital Signs - 24 hr 09/17/22 15:00 09/17/22 15:00 09/17/22 19:22 Temperature 97.7 F Pulse Rate [Pulse Oximeter] 60 Respiratory Rate 17 18 Blood Pressure [Le ft Arm] 126/62 Blood Pressure [Ri ght Arm] Pulse Oximetry 94 95 91 Oxygen Delivery Me thod Nasal Cannula Room Air Oxygen Flow Rate 1 0 09/17/22 20:04 09/17/22 23:50 09/17/22 23:50 Temperature Pulse Rate [Pulse Oximeter] 67 60 Respiratory Rate 20 18 18 Blood Pressure [Le ft Arm] 131/74 Blood Pressure [Ri ght Arm] Pulse Oximetry 91 96 Oxygen Delivery Me thod Room Air Nasal Cannula Oxygen Flow Rate 0.5 09/18/22 00:05 09/18/22 02:10 09/18/22 07:00 Temperature 96.8 F L 97.5 F L 97.2 F L Pulse Rate [Pulse Oximeter] 60 61 61 Respiratory Rate 18 20 18 Blood Pressure [Le ft Arm] 138/80 162/86 H Blood Pressure [Ri ght Arm] 126/64 Pulse Oximetry 96 95 90 Oxygen Delivery Me thod Nasal Cannula CPAP Room Air Oxygen Flow Rate 0.5 09/18/22 07:00 09/18/22 11:00 Temperature 97.2 F L Pulse Rate [Pulse Oximeter] 88 Respiratory Rate 18 Blood Pressure [Le ft Arm] 122/77 Blood Pressure [Ri ght Arm] Pulse Oximetry 90 92 Oxygen Delivery Me thod Room Air Room Air Oxygen Flow Rate Labs Labs: Laboratory Results - last 24 hr 09/18/22 05:58 WBC 4.76 RBC 5.06 Hgb 14.8 Hct 46.7 MCV 92 MCH 29 MCHC 32 Plt Count 93 L VBG pH 7.335 VBG pCO2 53 H VBG pO2 40.2 VBG HCO3 28 Sodium 134 L Potassium 4.9 Chloride 104 Carbon Dioxide 25 BUN 22 Creatinine 0.9 Estimated Creat Clear 42.62 Estimated GFR 67 Glucose 88 Calcium 9.6
--- NOTE | 2022-09-18 13:08 | PC.NURSE ---
Patient rates pain 3/10 when ambulating and at rest. Pain 6/10 with some activities and deep breaths. PRN Oxy given at 0849 prior to x-ray. O2 sats decreased to 85% upon awakening. Enc IS use. O2 at 1 LPM per NC applied. Recheck at 1100 was 92% on RA. All other VSS. No c/o SOB. Ambulated in hallways with walker, gait belt and standby assist. Enc pt to splint left side with position changes. Active Ice applied. Tolerating regular diet. No N/V. Fine crackles right lung base.
--- NOTE | 2022-09-18 18:48 | PC.NURSE ---
end of shift. she is alert x4. he is very pleasant. she got 5 mg oxycodone for pain at the start of the shift, encourage IS use. she is up with a walker, gait belt and standby assist. . Active Ice on and off. she is eating, drinking and voiding. . SL is patent.
[2022-09-18] MEDS: ATORVASTATIN 10 MG TABLET 20 MG PO (20:57)
[2022-09-18] MEDS: CITALOPRAM HYDROBROMIDE 20 MG TABLET PO (20:57)
[2022-09-18] MEDS: METOPROLOL TARTRATE 25 MG TABLET PO (20:57)
--- NOTE | 2022-09-18 22:24 | PC.NURSE ---
Nursing Care Hours: 8710-1117 Pt this shift calm and cooperative. Rating pain 3/10 when at rest and not moving, 8/10 with movement. Declined pain medication until bedtime at 2100 to allow for 'comfortable sleep. Pt using IS and states it really starts to hurt when getting to 1750. Educated on splinting while taking deep breaths and coughing. Inspiratory rhonchi sounds in posterior LLL. Afebrile. Walked song x2. Voiding in toilet. SpO2 stable on RA while sitting up. While in bed with CPAP on, SpO2 at 85-88%. Changed pulse oximeter probe, repositioned pt and raised HOB 30 degrees without change in SpO2 reading. Charge nurse notified. Reviewed VS history with no similar readings seen. Pt concerned about having low oxygen when discharged home and states I can't sleep in a recliner my whole life. Airport Planner discussed that patient rib fracture and use of narcotic pain medication may be contributing and that it should resolve as pain decreases and pt can take deeper breaths easier. Also discussed using home pulse oximeter to check oxygen throughout day and before getting up to bathroom during the night. Also discussed following up with primary MD to discuss a reevaluation of CPAP machine.
[2022-09-18 23:35] LABS: Slide Review Acceptable Review (Acceptable)
[2022-09-19 03:00] VITALS: PULSE 65; RESP 18; O2SAT 89
[2022-09-19] MEDS: OXYCODONE 5 MG TABLET PO ×2 (03:42→08:45)
--- NOTE | 2022-09-19 06:29 | PC.NURSE ---
Pt AO, pleasant and cooperative. Ambulatory with walker, gait belt, SBA. Continent with bladder, no BM during shift. Pt reports pain in ribs between 6-8/10 with movement, 3-4/10 at rest, well-controlled with oxycontin and scheduled tylenol. 0030 Tylenol held per pt request to allow her to sleep. IV removed d/t c/o of discomfort.
[2022-09-19] MEDS: LEVOTHYROXINE 50 MCG TABLET PO (06:34)
[2022-09-19] MEDS: ACETAMINOPHEN 500 MG TABLET 1000 MG PO (06:34)
[2022-09-19 06:46] LABS: Basophils Absolute Auto 0.03 K/uL (0.00-0.30); Basophils Percent Auto 0.6 % (0.0-3.0); Eosinophils Absolute Auto 0.24 K/uL (0.00-0.50); Eosinophils Percent Auto 5.1 % (0.0-7.0); Hemoglobin* 13.7 gm/dL (12.0-16.0); Lymphocytes Percent Auto 13.6 % (20-44); Mean Corpuscular HGB Conc 32 gm/dL (32-36); Mean Corpuscular Hemoglobin 29 pg (26-34); Mean Corpuscular Volume 92 fL (80-100); Monocytes Percent Auto 10.6 % (0.0-11.0); Neutrophils Percent Auto 70.1 % (42.0-72.0); Platelet Count* 128 K/uL (140-440); RDW Coefficient of Variation % 14.5 % (11.5-15.5); Red Blood Count 4.66 m/uL (4.00-5.20); White Blood Count* 4.71 K/uL (4.50-11.00)
[2022-09-19 06:51] LABS: Slide Review Reflex No
[2022-09-19 06:59] LABS: Chloride* 102 mmol/L (96-114); Potassium* 4.3 mmol/L (3.6-5.1); Sodium* 134 mmol/L (135-149)
[2022-09-19 07:01] LABS: Creatinine* 0.8 mg/dL (0.5-1.5); Est. Creatinine Clearance* 42.62; Estimated Glomerular Filt Rate 77 ml/min
[2022-09-19 07:02] LABS: Blood Urea Nitrogen* 19 mg/dL (7-30); Calcium* 9.5 mg/dL (8.4-10.6); Carbon Dioxide* 26 mmol/L (20-32); Glucose* 90 mg/dL (60-115)
[2022-09-19 07:52] VITALS: BP 113/64; PULSE 72; RESP 18; TEMP 36.6; O2SAT 91
[2022-09-19] MEDS: MULTIVITAMIN/MINERALS 1 TABLET 1 TAB PO (08:45)
--- NOTE | 2022-09-19 09:19 | PM.DS1 ---
DS: Providers Provider Date Seen: 09/19/22 Date of admission: 09/18/22 09:20 Primary care physician: Arleen Ramirez MD Admitting Clinician: Deborah Hutchinson MD Consults: OT, PT Attending Physician on discharge: Marci Escamilla MD Date of Discharge: 09/19/22 DS: Diagnosis Discharge Diagnosis (1) Fracture, ribs: Status: Acute Problem details: - Acute nondisplaced fractures of the right anterior 4th rib and left anterior 4th-6th ribs. - received a nerve block by anesthesia on 09/17 - working with therapies to complete ADLs - pain management: scheduled APAP, home dose of Meloxicam, prn Oxycodone (2) Acute respiratory failure: Status: Acute Problem details: - was able to wean off of supplemental oxygen during stay (3) Lymphadenopathy: Status: Acute Problem details: - CT chest/abd/pelvis 09/16/22: Mildly prominent mediastinal, bilateral axillary, and bilateral pelvic lymph nodes are likely reactive - patient aware of findings; will need further outpatient workup/followup (PCP is Dr. Arleen Ramirez at [facility]; ) (4) Abnormal cervix finding: Status: Acute Problem details: - CT chest/abd/pelvis 09/16/22: There appears to be an enhancing lesion within the cervical canal. This could be further evaluated with nonemergent pelvic ultrasound - patient aware, will f/u with PCP (5) Pulmonary hypertension: Status: Suspected Problem details: - CT chest 09/16/22: Enlargement of the main pulmonary artery which can be seen with pulmonary hypertension - consider outpatient TTE to evaluate further (6) Thyroid disorder: Status: Acute Problem details: - had been seen by Receiving Supervisor with resolution - during stay, had elevated TSH and low T4 - Levothryoxine restarted at 50mcg 09/16 DS: Summary Hospital Course Hospital Course: Genny is a very pleasant 72-year-old female who presented to the hospital after mechanical fall at home. She sustained multiple broken ribs and required inpatient stay for pain control and intermittent hypoxia. She was able to wean off supplemental oxygen during stay and was able to find adequate pain control after a nerve block with anesthesia, in addition to scheduled Tylenol, scheduled meloxicam, p.r.n. oxycodone. She was seen by therapies who did not identify any needs for rehab upon discharge. She has a friend who is going to stay with her for 1 week and assist her at home, and was medically appropriate for discharge on 09/19. Admission imaging did reveal the incidental findings as noted above, patient is aware and will see her PCP for these. Status at Discharge Functional status at discharge: independent ambulation Overall status at discharge: patient is progressing back to baseline Time Spent with Patient Time attestation: Total time spent providing and/or coordinating discharge services: Time spent: Greater than 30 minutes Specific discharge activities: Medication reconciliation, education Exam Narrative: Exam Narrative: GEN: Alert and oriented, appears to have better pain control on day of discharge HEENT: Normal external ears, EOMIs bilaterally, no scleral icterus CV: RRR, No concerning murmurs, rubs, or gallops R: LCTA bilaterally without concerning wheezing, fine crackles at left lower base that clear after deep breath Ext: wwp, no concerning edema Neuro: Nonfocal Psych: Appropriate Const: Vital Signs, click to edit/add: Vital Signs - 24 hr 09/18/22 11:00 09/18/22 15:30 09/18/22 15:30 Temperature 97.2 F L 97.0 F L Pulse Rate [Pulse Oximeter] 88 82 Respiratory Rate 18 16 16 Blood Pressure [Le ft Arm] 122/77 Blood Pressure [Ri ght Arm] 141/72 H Pulse Oximetry 92 90 90 Oxygen Delivery Me thod Room Air Room Air Room Air 09/18/22 15:30 09/18/22 19:00 09/18/22 19:00 Temperature 98.0 F Pulse Rate [Pulse Oximeter] 82 80 Respiratory Rate 16 18 Blood Pressure [Le ft Arm] 151/70 H Blood Pressure [Ri ght Arm] Pulse Oximetry 91 91 Oxygen Delivery Me thod Room Air 09/18/22 19:00 09/18/22 19:00 09/18/22 23:00 Temperature Pulse Rate [Pulse Oximeter] 80 65 Respiratory Rate 18 18 18 Blood Pressure [Le ft Arm] Blood Pressure [Ri ght Arm] Pulse Oximetry 91 Oxygen Delivery Me thod Room Air 09/18/22 23:00 09/18/22 23:00 09/19/22 03:00 Temperature 97.9 F Pulse Rate [Pulse Oximeter] 65 65 Respiratory Rate 18 18 18 Blood Pressure [Le ft Arm] Blood Pressure [Ri ght Arm] 113/70 Pulse Oximetry 93 93 89 Oxygen Delivery Me thod Room Air CPAP Room Air BiPAP Room Air CPAP 09/19/22 07:52 09/19/22 07:52 Temperature 97.8 F Pulse Rate [Pulse Oximeter] 72 Respiratory Rate 18 18 Blood Pressure [Le ft Arm] Blood Pressure [Ri ght Arm] 113/64 Pulse Oximetry 91 91 Oxygen Delivery Me thod CPAP Room Air DS: Data Data Completed and Pending Labs on day of discharge: Labs from last 24 hours 09/19/22 09/18/22 05:45 05:58 WBC 4.71 RBC 4.66 Hgb 13.7 Hct 43.0 MCV 92 MCH 29 MCHC 32 RDW Coeff of Rayray 14.5 Plt Count 128 L Neut % (Auto) 70.1 Lymph % (Auto) 13.6 L [place] % (Auto) 10.6 Eos % (Auto) 5.1 Baso % (Auto) 0.6 Neut # (Auto) 3.30 Lymph # (Auto) 0.60 L [place] # (Auto) 0.50 Eos # (Auto) 0.24 Baso # (Auto) 0.03 Abs Immat Gran (auto) 0.00 Imm/Tot Granulo (auto) 0.0 Diff Slide Review Acceptable Review Sodium 134 L Potassium 4.3 Chloride 102 Carbon Dioxide 26 BUN 19 Creatinine 0.8 Estimated Creat Clear 42.62 Estimated GFR 77 Glucose 90 Calcium 9.5 Discharge Plan Discharge Disposition: Home, Self-Care Date of Admission: 09/18/22 09:20 Attending Provider on Discharge: Marci Escamilla Primary Care Provider: Arleen Ramirez Condition: Improved Anticipated Discharge Date/Time: 09/19/22 10:00 Discharge Medications: New meloxicam 15 mg Tablet 15 mg PO HS Qty: 30 0RF levothyroxine 50 mcg Tablet 50 mcg PO DAILY@0700 Qty: 30 0RF oxycodone 5 mg Tablet 5 - 10 mg PO Q6H PRN (Reason: Pain) Qty: 20 0RF Continued atorvastatin 20 mg tablet 20 mg PO HS citalopram 20 mg tablet 20 mg PO HS metoprolol tartrate 25 mg tablet 25 mg PO HS Centrum Adult 50 Plus 80 mcg tablet,chewable 1 tab PO DAILY Discontinued meloxicam 15 mg tablet 15 mg PO HS Discharge Orders: Discharge Order (Routine); Ordered 09/19/22 Ordered By: Marci Escamilla Patient Education: Levothyroxine (By mouth), Oxycodone, Rapid Release (By mouth), Meloxicam (By mouth), Rib Fracture (DC) Additional Instructions: For your broken ribs: - it is VERY important that you have good pain control. Best to SCHEDULE Tylenol (1000mg every 8 hours), SCHEDULE your Meloxicam at night, then use Oxycodone as needed in between. I have sent Oxycodone and a refill of your Meloxicam to [facility]. - To prevent pneumonia, make sure you are using the Incentive Spirometer 4-5 times/day. Your thyroid was underactive again during stay (high TSH, low T4). We restarted a low dose thyroid replacement (also sent to [facility]). Follow up with Dr. Ramirez for further investigation of CT findings seen in the ED (we will fax her reports): atypical lymph nodes (likely reactive), an enhancing lesion in cervical canal (recommends nonemergent pelvic u/s), mild enlargement of pulmonary artery (consider TTE, f/u [facility]ANDIS). She can also recheck your thyroid function. Activity Level: No strenuous activity Discharge Diet: Regular Follow Up Appointments: Arleen Ramirez MD [Primary Care Provider] - 09/26/22 4:00 pm (Dr. Ramirez at [facility] next week for hospital f/u clinic # ) Forms: [employer] Info Instructions
--- NOTE | 2022-09-19 13:20 | PC.NURSE ---
shift note: pt up sba/walker. pt medicated for lt rib pain @ 0845 with relief. Pt instructed on pain control at home during dc instructions. No IV present at dc. Belonging gathered and sent with pt at dc. Reviewed dc instructions with pt and her friend. Questions addressed.
== END 2022-09-19 11:35 | disposition home or self-care (01) | DRG 183 ==
LOC: ED 16:39 → MEDSURG 17:16
PROVIDERS: Family Medicine; Admitting Provider Family Medicine; Emergency Provider Emergency Medicine; PCP Family Medicine; Visit Provider Family Medicine
DX: S22.43XA Multiple fractures of ribs, bilateral, initial encounter for closed fracture (principal); J96.00 Acute respiratory failure, unspecified whether with hypoxia or hypercapnia; G89.11 Acute pain due to trauma; R59.1 Generalized enlarged lymph nodes; I27.20 Pulmonary hypertension, unspecified; I10 Essential (primary) hypertension; M35.3 Polymyalgia rheumatica; D69.6 Thrombocytopenia, unspecified; E03.9 Hypothyroidism, unspecified; E07.9 Disorder of thyroid, unspecified; N88.9 Noninflammatory disorder of cervix uteri, unspecified; Z87.820 Personal history of traumatic brain injury; W01.0XXA Fall on same level from slipping, tripping and stumbling without subsequent striking against object, initial encounter; Y93.K1 Activity, walking an animal; Y92.096 Garden or yard of other non-institutional residence as the place of occurrence of the external cause
CPT/HCPCS: 36415; 64450; 70450; 71045; 71046; 71260; 72125; 74177; 76942; 80048; 81001; 82803; 84439; 84443; 85025; 85027; 87631; 94761; 97116; 97162; 97165; 97530; 97535; 99284; A9153; A9270; C9290; G0378; J0665; J1885; J2405; J3010; Q9967

== ENCOUNTER 2022-10-08 06:11 | Outpatient (CLI) | payer MEDICARE, BC, SELFPAY | END 2022-10-08 06:12 | disposition home or self-care (01) | LOC: AMB 10-09 11:25 | PROVIDERS: PCP Family Medicine; Visit Provider Family Medicine | DX: M54.50 Low back pain, unspecified (principal); M25.551 Pain in right hip; M25.552 Pain in left hip; R07.89 Other chest pain | CPT/HCPCS: A0425; A0427 ==

== ENCOUNTER 2022-10-08 06:57 | Emergency (ER) | payer MEDICARE, BC, SELFPAY ==
[2022-10-08 07:02] VITALS: BP 144/66; PULSE 74; RESP 18; TEMP 36.8; O2SAT 94; BMI 34.4
[2022-10-08] MEDS: ACETAMINOPHEN 500 MG TABLET 1000 MG PO (07:29)
[2022-10-08] MEDS: TRAMADOL HCL 50 MG TABLET 100 MG PO (07:29)
[2022-10-08 07:32] VITALS: PULSE 77; O2SAT 94
[2022-10-08 07:33] VITALS: O2SAT 94
[2022-10-08 07:34] VITALS: O2SAT 94
--- NOTE | 2022-10-08 07:35 | ED.NURSE ---
EMS gave pt IV Fentanyl for pain prior to arrival. Pt O2 sats dropped lower after this. Pt on 2L O2 NC, satting around 94% on 2L.
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
--- NOTE | 2022-10-08 08:22 | PC.NURSE ---
Patient ambulated around unit X2 without any difficulty. Did use walker and patient stated she has one at home. Patient's great nephew is coming to pick her up. Prescription for Tramadol was sent into her pharmacy. PIV taken out and catheter intact. All questions answered. Was on oxygen when she arrived. Oxygen was removed and patient was sating 93% on RA.
[2022-10-08 08:25] VITALS: BP 128/60; PULSE 80; RESP 16; TEMP 35.6; O2SAT 93
== END 2022-10-08 08:26 | disposition home or self-care (01) ==
PROVIDERS: Emergency Provider Family Medicine; PCP Family Medicine
DX: M70.62 Trochanteric bursitis, left hip (principal)
CPT/HCPCS: 94761; 99283; A9270

== ENCOUNTER 2023-01-09 14:13 | Emergency (ER) | payer MEDICARE, BC, SELFPAY ==
[2023-01-09 14:19] VITALS: BP 136/74; PULSE 79; RESP 18; TEMP 36.6; O2SAT 95; BMI 33.5
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
== END 2023-01-09 15:36 | disposition home or self-care (01) ==
LOC: ED 15:13
PROVIDERS: Emergency Provider Family Medicine; PCP Family Medicine
DX: R22.0 Localized swelling, mass and lump, head (principal)
CPT/HCPCS: 99283; 99284

== ENCOUNTER 2023-05-19 16:21 | Emergency (ER) | payer MEDICARE, BC, SELFPAY ==
[2023-05-19 16:30] VITALS: BP 163/95; PULSE 84; RESP 18; TEMP 36.8; O2SAT 97; BMI 34.3
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
--- OUTSIDE RECORDS SUMMARY | 2023-05-19 17:08 | XMS_ITS | Clinical Summary ---
Author Name Unknown Organization [employer] [facility] [employer] Address [place], [place] [address] Care Team Providers Care Mortgage Loan Underwriter Name Role Phone Arleen Ramirez MD Primary Care P rovider Allergies No known active allergies Medications Medication Sig Dispensed Refills Start Date End Date Status medication order composer Calcium Citrate-Vitamin D 500mg w/ Calcium 630mg daily 0 08/30/2014 Active atorvastatin (LIPITOR) 20 mg tablet Take 20 mg by mouth once daily. 08/23/2021 Active citalopram (CELEXA) 20 mg tablet Take 20 mg by mouth once daily. 10/22/2021 Active meloxicam 15 mg tablet Take 15 mg by mouth once daily. 09/11/2021 Active metoprolol tartrate (LOPRESSOR) 25 mg tablet Take 25 mg by mouth once daily. 09/10/2021 Active Active Problems No known active problems Immunizations Name Administration Dates Next Due Influenza, IIV3 (Age >=3 years) 12/15/2011 Social History Tobacco Use Types Packs/Day Years Used Date Smoking Tobacco: Former Cigarettes Smokeless Tobacco: Never Comments:quit 5yrs ago 2009 Alcohol Use Standard Drinks/Week Comments Yes 0 (1 standard drink = 0.6 oz pur e alcohol) Not many times per week Social Connections Answer Date Recorded Frequency of Communication with Friends and Fami ly Not on file 07/17/2022 Sex and Gender Information Value Date Recorded Sex Assigned at Not on file Gender Identity Not on file Sexual Orientation Not on file Obstetrics History Last Filed Vital Signs Vital Sign Reading Time Taken Comments Blood Pressure 130/78 07/17/2022 10:06 AM CDT Pulse 68 07/17/2022 10:06 AM CDT Temperature 36.3 ??C (97.4 ??F) 10/28/2021 6:50 PM CD T Respiratory Rate 16 10/28/2021 6:50 PM CDT Oxygen Saturation 95% 10/28/2021 6:50 PM CDT Inhaled Oxygen Concentration - - Weight 92.3 kg (203 lb 6.4 oz) 07/17/2022 10:06 AM CDT Height 160 cm (5' 3) 07/17/2022 10:06 AM CDT Body Mass Index 36.03 07/17/2022 10:06 AM CDT Plan of Treatment Health Maintenance Due Date Last Done Comments Tdap 09/13/1961 Depression screening for age 12+ 1960 Hepatitis C screening for age 18-79 1966 Tetanus booster 1968 Colonoscopy through age 75 1993 Lipids for age 45-75 1993 Mammogram for age 45-75 1993 Zoster (shingles) series for age 50+ (1 of 2) 1998 DEXA/DXA scan for age 65+ 2013 Medicare Wellness for age 65+ 2013 Pneumococcal series for age 65+ (1 of 1 - PCV) 2013 COVID-19 vaccine series ( season) 2022 12/04/2021, 07/13/2021 BMI (ht and wt on same day) for age 18+ 07/18/2023 0 07/17/2022 Influenza for age 65+ 10/12/2023 12/15/2011 Care Teams Mortgage Loan Underwriter Relationship Specialty Start Date End Date Arleen Ramirez MD [id number] [place] [address] PCP - General Family Practice 10/28/21
[2023-05-19] MEDS: KETOROLAC 30 MG/ML inj IM (17:12)
== END 2023-05-19 17:34 | disposition home or self-care (01) ==
PROVIDERS: Emergency Provider Emergency Medicine Emergency Medical Services; PCP Family Medicine
DX: T22.10XA Burn of first degree of shoulder and upper limb, except wrist and hand, unspecified site, initial encounter (principal); T22.112A Burn of first degree of left forearm, initial encounter; T20.10XA Burn of first degree of head, face, and neck, unspecified site, initial encounter; T31.0 Burns involving less than 10% of body surface
CPT/HCPCS: 96372; 99283; 99284; J1885